=== PATIENT | female | born 1975 | race Two or more races ===

== ENCOUNTER 2021-05-20 21:25 | Emergency (ER) | payer MEDICAID ==
[~2021-05-20] VITALS: Ht 157.5 cm; Wt 86.2 kg
[2021-05-20 21:30] VITALS: BP 153/95
[2021-05-20] MEDS ORDERED: HYDR453.3 TP (22:33)
--- NOTE | 2021-05-20 22:43 | NUR ---
PT CAME IN FOR ALLERGIC REACTION NOTED AFTER EATING A NEW DISH WITH BEEF, PER PT SHE HAS EATEN BEEF IN THE PAST. NEW ONSET OF HIVES ON BUE, AND REDNESS, WARMTH, SWELLING NOTED AROUND CHIN AND BOTH EARS. NO OTHER CHANGES IN DIET. PT DENIES ALLERGIES. PT C/O OF STRESS LATELY. PT IN ER BED 2 AND PLACED ON MONITOR.
--- NOTE | 2021-05-20 22:50 | NUR ---
Patient discharged to home in stable condition. Written and verbal after care instructions given. Patient verbalizes understanding of instruction.
== END 2021-05-20 22:50 | disposition home or self-care (01) ==
LOC: ER 21:30
DX: R21 Rash and other nonspecific skin eruption (principal)

== ENCOUNTER 2021-12-06 20:17 | Emergency (ER) | payer MEDICAID ==
[~2021-12-06] VITALS: Ht 157.5 cm; Wt 86.2 kg
[~2021-12-06 20:17] MED LIST: HYDR453.3 TP
--- NOTE | 2021-12-06 20:25 | NUR ---
PATIENT BIBSELF C/O RIGHT SIDED ABD RAD TO BACK AREA. PATIENT IS A/O X 4, RR EVEN AND UNLABORED NO SOB NOTED. PATIENT TAKEN TO ER BED 02. PATIENT CONNECTED TO MONITORS.
--- NOTE | 2021-12-06 20:38 | NUR ---
urine collected sent to lab
[2021-12-06] MEDS ORDERED: KETOROLAC TROMETHAMINE 15 MG/ML VIAL ONE (20:52)
[2021-12-06] MEDS ORDERED: KETOROLAC TROMETHAMINE INJ 30 MG/ML VIAL IV ONE (21:00)
[2021-12-06] MEDS ORDERED: IV NS 0.9% 1,000 ML BAG IV ONE (21:00)
--- NOTE | 2021-12-06 21:02 | NUR ---
20G IV LINE ESTABLISHED AT . BLOOD DRAWN AND SENT TO LAB. MEDS ADMISTERED PER MD ORDER.
[2021-12-06 21:20] LABS: BASOPHILS % (AUTO) 0.4 % (0.0-2.0); HEMATOCRIT 36 % (33-45); LYMPHOCYTES # (AUTO) 1.5 K/uL (0.8-4.8); LYMPHOCYTES % (AUTO) 16.9 % (20.0-44.0); MEAN CORPUSCULAR HGB CONC 34 g/dl (31.0-36.0); MEAN CORPUSCULAR VOLUME 87 fL (82-100); MONOCYTES # (AUTO) 0.7 K/uL (0.1-1.30); MONOCYTES % (AUTO) 7.5 % (2.0-12.0); NEUTROPHILS # (AUTO) 6.6 K/uL (1.8-8.9); NEUTROPHILS % (AUTO) 74.2 % (43.0-81.0); PLATELET COUNT (AUTO) 370 K/uL (150-450); RED BLOOD CELL COUNT(AUTO) 4.11 MIL/uL (4.0-5.2); WHITE BLOOD COUNT (AUTO) 8.9 K/uL (4.3-11.0)
[2021-12-06 21:21] LABS: BILIRUBIN,URINE NEGATIVE (NEGATIVE); COLOR,URINE YELLOW (YELLOW); LEUKOCYTE ESTERASE ,URINE NEGATIVE (NEGATIVE); NITRITE, URINE NEGATIVE (NEGATIVE); PROTEIN,URINE NEGATIVE (NEGATIVE); UGLUCOSE NEGATIVE (NEGATIVE)
[2021-12-06 21:38] LABS: ALBUMIN 3.3 g/dL (3.4-5.0); BILIRUBIN,DIRECT 0.1 mg/dL (0.0-0.2); BILIRUBIN,TOTAL 0.3 mg/dL (0.2-1.0); CALCIUM, SERUM 8.6 mg/dL (8.5-10.1); CREATININE 0.7 mg/dL (0.6-1.3); TOTAL PROTEIN, SERUM 8.4 g/dL (6.4-8.2)
--- NOTE | 2021-12-06 22:03 | NUR ---
INTERNAL SPECIALIST AT BEDSIDE
[2021-12-06 22:09] LABS: POTASSIUM 3.8 mmol/L (3.5-5.1)
[2021-12-06 23:10] VITALS: BP 150/84
--- NOTE | 2021-12-06 23:10 | NUR ---
Patient discharged to home in stable condition. Written and verbal after care instructions given. Patient verbalizes understanding of instruction.IV removed. Catheter intact and site benign. Pressure and 4x4 applied to site. No bleeding noted.
== END 2021-12-06 23:11 | disposition home or self-care (01) ==
LOC: ER 20:19
DX: R10.13 Epigastric pain (principal); R10.11 Right upper quadrant pain; R11.2 Nausea with vomiting, unspecified; R30.0 Dysuria; E66.9 Obesity, unspecified; Z68.34 Body mass index [BMI] 34.0-34.9, adult; Z79.899 Other long term (current) drug therapy
CPT/HCPCS: 99284; 96374; 76705; 96361; 85025; 80048; 83690; 80076; 84703; 81003; 36415; J7030; J1885

== ENCOUNTER 2023-10-02 09:42 | Emergency (ER) | payer MEDICAID, OTHER ==
[~2023-10-02] VITALS: Ht 162.6 cm; Wt 85.7 kg
[2023-10-02 11:52] VITALS: BP 134/78; TEMP 98.4; O2SAT 100
== END 2023-10-02 11:52 | disposition home or self-care (01) ==
LOC: ER 09:47
DX: H10.89 Other conjunctivitis (principal)